=== PATIENT | male | born 1995 | race Caucasian/White ===

== ENCOUNTER 2019-05-09 13:06 | Emergency (ER) | payer MEDICAID ==
[2019-05-09 13:35] VITALS: PULSE 96
[2019-05-09] MEDS ORDERED: Ketorolac 30 MG/ML SDV IM ONE (14:11)
[2019-05-09] MEDS ORDERED: Cyclobenzaprine 10 MG Tab PO ONE (14:11)
[2019-05-09 15:22] LABS: BLOOD UREA NITROGEN,BUN 16 mg/dL (7.0-18.0); CARBON DIOXIDE,CO2 22.5 mmol/L (21.0-32.0); CHLORIDE,CL 103 mmol/L (98-107); GLUCOSE RANDOM 93 mg/dL (74-106); POTASSIUM,K 3.7 mmol/L (3.5-5.1); SODIUM,NA 140 mmol/L (136-148)
--- NOTE | 2019-05-09 15:36 | CT ---
CT abdomen and pelvis Technique: Multiple axial sections were obtained from above the dome of the diaphragm inferiorly through the pubic symphysis. Intravenous contrast was not utilized. No oral contrast was utilized. Study has been performed as a ureteral stone protocol. Findings: Vague areas of increased density are noted within the medullary pyramids. This most likely represents early medullary sponge kidney. No other abnormal calcifications are seen within the kidneys. No ureteral dilatation or ureteral stone is seen. Other findings: Visualized lung bases showed nothing acute. Noncontrast appearance of the liver shows no discrete abnormality. Gallbladder contains no calcified gallstones. Spleen appears within normal limits. Adrenal glands show no nodule. Pancreas shows no discrete abnormality. Aorta shows no aneurysm. No retroperitoneal adenopathy or mesenteric abnormalities are seen. No pelvic mass or adenopathy is seen. No free fluid or inflammatory change is seen within the abdomen or pelvis. Appendix is seen and is felt to be within normal limits in size. 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 Bony structures are otherwise unremarkable. Impression: 1. Probable early medullary sponge kidney as described above. 2. Spondylolytic defects at L5-S1. 3. No ureteral dilatation or ureteral calculi are seen. 4. No additional abnormality is appreciated on noncontrast CT study of the abdomen and pelvis. Diagnostic code #2 Study was dictated in [place] Standard Time
--- NOTE | 2019-05-09 15:59 | EDM.PDOC ---
ED HPI GENERAL MEDICAL PROBLEM - General Chief Complaint: Flank Pain Stated Complaint: KIDNEY AND STOMACH PAIN Time Seen by Provider: 05/09/19 15:56 Source of Information: Reports: Patient History Limitations: Reports: No Limitations - History of Present Illness INITIAL COMMENTS - FREE TEXT/NARRATIVE: Patient is a 22-year-old male with no significant past medical history presented chief complaint of mid back pain. Patient states the pain started last night. Patient states he does a lot of heavy lifting at his work. 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 Patient cannot member any specific injury. Patient states the pain is intense and severe in nature. Patient states the pain does not radiate. Patient reports several episodes of vomiting due to severe pain. Patient has not taken any medications prior to arrival. Patient denies any urinary incontinence or saddle paresthesias. Patient denies any fevers, chills, intravenous drug use. Denies any urinary symptoms In addition to that documented in the HPI above, the additional ROS was obtained : Constitutional: Denies fevers or chills Eyes: Denies vision changes ENMT: Denies sore throat CV: Denies chest pain Resp: Denies SOB GI: Per HPI : Denies painful urination MSK: Denies recent trauma Skin: Denies new rashes Neuro: Denies new numbness or tingling or weakness Endocrine: Denies unexpected weight loss Heme: Denies bleeding disorders I have reviewed the triage vital signs Const: Well nourished, well developed, appears stated age Eyes: PERRL, no conjunctival injection HENT: NCAT, Neck supple without meningismus CV: RRR, Warm, well-perfused extremities RESP: CTAB, Unlabored respiratory effort GI: soft, non-tender, non-distended, no masses MSK: No gross deformities appreciated. Bilateral paraspinal tenderness. No midline spinal tenderness. Skin: Warm, dry. No rashes Neuro: Alert, director advertising II-XII grossly intact. Sensation and motor function of extremities grossly intact. Psych: Appropriate mood and affect Assessment and plan Patient 20-year-old male presenting with back pain. Patient has no high risk features of concerning for abscess or spinal compression. Patient reports a musculoskeletal type etiology with his heavy lifting. However, patient did do the instrument straight small blood in the urine which could be concerning for a kidney stone. Patient had CT scan which did not demonstrate any acute findings. Patient instructed to follow-up and assessment. Patient will be treated with pain medication as an outpatient. All questions were asked and answered. Patient agrees with plan Bilateral Middle Back Pain Score (Numeric/FACES): 7 - Related Data Allergies Allergy/AdvReac Type Severity Reaction Status Date / Time No Known Allergies Allergy Verified 08/20/15 21:19 Home Meds: Home Meds . [No Known Home Meds] 08/31/14 [History] Past Medical History - Past Health History Medical/Surgical History: Denies Medical/Surgical History HEENT History: Reports: None Cardiovascular History: Reports: None Respiratory History: Reports: None Gastrointestinal History: Reports: None Genitourinary History: Reports: None Musculoskeletal History: Reports: None Neurological History: Reports: None Psychiatric History: Reports: Bipolar Endocrine/Metabolic History: Reports: None Hematologic History: Reports: None Immunologic History: Reports: None Oncologic (Cancer) History: Reports: None Dermatologic History: Reports: None - Infectious Disease History Infectious Disease History: Reports: None - Past Surgical History Head Surgeries/Procedures: Reports: None Social & Family History - Family History Family Medical History: Noncontributory - Tobacco Use Smoking Status *Q: Current Every Day Smoker Years of Tobacco use: 9 Packs/Tins Daily: 0.5 Used Tobacco, but Quit: No Second Hand Smoke Exposure: Yes - Caffeine Use Caffeine Use: Reports: Soda, Tea - Recreational Drug Use Recreational Drug Use: Yes Drug Use in Last 12 Months: Yes Recreational Drug Type: Reports: Marijuana/Hashish Recreational Drug Use Frequency: Socially ED ROS GENERAL - Review of Systems Review Of Systems: See Below ED EXAM,LOWER BACK PAIN/INJURY - Physical Exam Exam: See Below Course - Vital Signs Last Recorded V/S: Last Vital Signs Temp 36.9 C 05/09/19 13:28 Pulse 96 05/09/19 13:28 Resp 15 05/09/19 13:28 BP 132/83 05/09/19 13:28 Pulse Ox 96 05/09/19 13:28 - Orders/Labs/Meds Labs: Laboratory Tests 05/09/19 05/09/19 05/09/19 Range/Units 13:20 14:38 14:38 WBC 5.91 (4.0-11.0) K/uL RBC 5.19 (4.50-5.90) M/uL Hgb 16.4 (13.0-17.0) g/dL Hct 46.7 (38.0-50.0) % MCV 90.0 (80.0-98.0) fL MCH 31.6 (27.0-32.0) pg MCHC 35.1 (31.0-37.0) g/dL RDW Std Deviation 41.7 (28.0-62.0) fl RDW Coeff of Andie 13 (11.0-15.0) % Plt Count 172 (150-400) K/uL MPV 10.40 (7.40-12.00) fL Neut % (Auto) 84.1 H (48.0-80.0) % Lymph % (Auto) 8.5 L (16.0-40.0) % Donley % (Auto) 6.9 (0.0-15.0) % Eos % (Auto) 0.0 (0.0-7.0) % Baso % (Auto) 0.5 (0.0-1.5) % Neut # (Auto) 5.0 (1.4-5.7) K/uL Lymph # (Auto) 0.5 L (0.6-2.4) K/uL Donley # (Auto) 0.4 (0.0-0.8) K/uL Eos # (Auto) 0.0 (0.0-0.7) K/uL Baso # (Auto) 0.0 (0.0-0.1) K/uL Nucleated RBC % 0.0 /100WBC Nucleated RBCs # 0 K/uL Sodium 140 (136-148) mmol/L Potassium 3.7 (3.5-5.1) mmol/L Chloride 103 (98-107) mmol/L Carbon Dioxide 22.5 (21.0-32.0) mmol/L BUN 16 (7.0-18.0) mg/dL Creatinine 1.0 (0.8-1.3) mg/dL Est Cr Clr Drug Dosing 118.63 mL/min Estimated GFR (MDRD) > 60.0 ml/min Glucose 93 (74-106) mg/dL Calcium 9.6 (8.5-10.1) mg/dL Total Bilirubin 0.6 (0.2-1.0) mg/dL AST 23 (15-37) IU/L ALT 33 (14-63) IU/L Alkaline Phosphatase 73 (46-116) U/L Total Protein 8.1 (6.4-8.2) g/dL Albumin 4.7 (3.4-5.0) g/dL Globulin 3.4 (2.6-4.0) g/dL Albumin/Globulin Ratio 1.4 (0.9-1.6) Urine Color YELLOW Urine Appearance CLEAR Urine pH 6.0 (5.0-8.0) Ur Specific [place] >= 1.030 (1.001-1.035) Urine Protein TRACE H (NEGATIVE) mg/dL Urine Glucose (UA) NEGATIVE (NEGATIVE) mg/dL Urine Ketones >=80 (NEGATIVE) mg/dL Urine Occult Blood SMALL H (NEGATIVE) Urine Nitrite NEGATIVE (NEGATIVE) Urine Bilirubin SMALL H (NEGATIVE) Urine Ictotest NEGATIVE Urine Urobilinogen 0.2 (<2.0) EU/dL Ur Leukocyte Esterase NEGATIVE (NEGATIVE) Urine RBC 1-2 (0-2/HPF) Urine WBC 0-2 (0-5/HPF) Ur Epithelial Cells RARE (NONE-FEW) Urine Bacteria RARE (NEGATIVE) Urine Mucus MODERATE (NONE-MOD) Meds: Medications Discontinued Medications Generic Name Dose Route Start Last Admin Trade Name Freq PRN Reason Stop Dose Admin Cyclobenzaprine HCl 10 mg 05/09/19 14:11 05/09/19 14:26 Flexeril PO 05/09/19 14:12 10 mg ONETIME ONE Administration Ketorolac Tromethamine 30 mg 05/09/19 14:11 05/09/19 14:26 Toradol IM 05/09/19 14:12 30 mg ONETIME ONE Administration Departure - Departure Time of Disposition: 15:58 Disposition: Home, Self-Care 01 Clinical Impression: Muscle strain - Discharge Information Instructions: Flank Pain, Adult, [id number] Referrals: PCP,None [Primary Care Provider] - Sepsis Event Note - Evaluation Sepsis Screening Result: No Definite Risk - Focused Exam Vital Signs: Vital Signs Temp Pulse Resp BP Pulse Ox 05/09/19 13:28 36.9 C 96 15 132/83 96 Date Exam was Performed: 05/09/19 Time Exam was Performed: 15:56
[2019-05-09 16:10] VITALS: BP 119/76
== END 2019-05-09 16:10 | disposition home or self-care (01) ==
LOC: MW.ED 13:06
DX: S29.012A Strain of muscle and tendon of back wall of thorax, initial encounter (principal); F17.210 Nicotine dependence, cigarettes, uncomplicated; X50.0XXA Overexertion from strenuous movement or load, initial encounter
CPT/HCPCS: 36415; 74176; 80053; 81001; 85025; 96372; 99284; A9270; J1885; 99283